=== PATIENT | female | born 1980 | race Caucasian/White ===

== ENCOUNTER 2017-08-10 06:37 | Day surgery (SDC) | payer OTHER ==
[2017-08-10] MEDS ORDERED: CEFAZOLIN 1 GM INJ (07:00)
[2017-08-10] MEDS ORDERED: EPHEDrine SULFATE 50 MG/5 ML SYG (07:00)
[2017-08-10 08:06] LABS: ADD MAN DIFF? NO
[2017-08-10 08:11] LABS: WHITE BLOOD COUNT 6.1 10^3/ul (4.8-10.8)
[2017-08-10 08:11] LABS: BASOPHILS % 0.2 % (0.0-2.0); EOSINOPHILS # 0.1 10^3/ul (0.0-0.5); EOSINOPHILS % 1.6 % (0.0-7.0); HEMATOCRIT 36.6 % (37.0-47.0); HEMOGLOBIN 12.4 g/dl (12.0-16.0); LYMPHOCYTES # 1.8 10^3/ul (0.8-2.9); LYMPHOCYTES % 29.9 % (15.0-51.0); MEAN CORPUSCULAR HEMOGLOBIN 28.2 pg (29.0-33.0); MEAN CORPUSCULAR HGB CONC 33.9 g/dl (32.0-37.0); MEAN CORPUSCULAR VOLUME 83.2 fl (82.0-101.0); MEAN PLATELET VOLUME 10.6 fl (7.4-10.4); MONOCYTE # 0.3 10^3/ul (0.3-0.9); MONOCYTES % 4.2 % (0.0-11.0); NEUTROPHIL # 3.9 10^3/ul (1.6-7.5); NEUTROPHILS % 63.8 % (39.0-77.0); PLATELET COUNT 166 10^3/UL (140-415); RED CELL DISTRIBUTION WIDTH 12.3 % (11.5-14.5)
[2017-08-10 08:36] LABS: INR 0.93; PROTIME 12.6 Sec (11.9-14.9)
[2017-08-10 08:37] LABS: PARTIAL THROMBOPLASTIN TIME 26.4 Sec (25.0-35.0)
[2017-08-10 08:40] LABS: ANION GAP 14 (8-16); CARBON DIOXIDE 24 mmol/L (21-31); CHLORIDE 107 mmol/L (97-110); GLUCOSE 85 mg/dl (70-220)
[2017-08-10 08:41] LABS: BLOOD UREA NITROGEN 14 mg/dl (7-20); CALCIUM 8.5 mg/dl (8.4-10.2); CREATININE 0.61 mg/dl (0.44-1.00); POTASSIUM 4.2 mmol/L (3.5-5.1); SODIUM 141 mmol/L (135-144)
[2017-08-10] MEDS ORDERED: FENTAnyl 50 MCG/ML VIAL (08:52)
[2017-08-10] MEDS ORDERED: MIDAZOLAM 1 MG/ML 2 ML INJ (08:52)
[2017-08-10] MEDS ORDERED: PROPOFOL 20 ML (08:52)
[2017-08-10] MEDS ORDERED: ROPIVACAINE 0.5 % 30 ML VIAL (08:52)
[2017-08-10] MEDS ORDERED: ROCURONIUM 50 MG INJ ×2 (08:52→09:56)
[2017-08-10] MEDS ORDERED: KETOROLAC 30 MG INJ (09:56)
[2017-08-10] MEDS ORDERED: ONDANSETRON 4 MG INJ (09:56)
[2017-08-10] MEDS ORDERED: METOCLOPRAMIDE 10 MG INJ (09:56)
[2017-08-10] MEDS ORDERED: DEXAMETHASONE 4 MG/ML 1 ML INJ (09:56)
[2017-08-10] MEDS: SODIUM CHLORIDE 0.9% 1L IRRIG IRR (10:08)
[2017-08-10] MEDS ORDERED: SUGAMMADEX SODIUM 200 MG/2 ML VIAL IV (10:21)
[2017-08-10] MEDS ORDERED: DIPHENHYDRAMINE 50 MG INJ IV (10:30)
[2017-08-10] MEDS ORDERED: METOCLOPRAMIDE 10 MG INJ IV (10:30)
[2017-08-10] MEDS ORDERED: HYDROmorphONE (0.2 MG/ML) 10ML SYG IV (10:30)
[2017-08-10] MEDS ORDERED: EPHEDrine SULFATE 50 MG/5 ML SYG IV (10:30)
[2017-08-10] MEDS ORDERED: FENTAnyl 50 MCG/ML VIAL IV ×3 (10:30)
[2017-08-10] MEDS: HYDROmorphONE (0.2 MG/ML) 10ML SYG IV ×4 (10:44→11:05)
[2017-08-10] MEDS: MEPERIDINE 25 MG INJ IV (10:45)
[2017-08-10] MEDS: ONDANSETRON 4 MG INJ IV (10:45)
[2017-08-10] MEDS ORDERED: ONDANSETRON 4 MG INJ IV (11:00)
[2017-08-10] MEDS ORDERED: ACETAMINOPHEN 1000MG/100ML IV 100 ML IVPB (11:00)
[2017-08-10] MEDS ORDERED: HYDROCODONE/APAP (5/325) TAB PO (11:00)
[2017-08-10] MEDS: D5W-0.45 NACL + KCL 20 MEQ 1,000 ML IV ×2 (19:30→19:58)
[2017-08-10] MEDS: SOD CHLORIDE 0.9% 1,000 ML IV (19:45)
[2017-08-10] MEDS: CEFAZOLIN 2 GM/50 ML (PMX) 50 ML IVPB (19:45)
[2017-08-10] MEDS: morphine 2 MG INJ IV (21:36)
[2017-08-11] MEDS: morphine 2 MG INJ IV (02:32)
[2017-08-11] MEDS: D5W-0.45 NACL + KCL 20 MEQ 1,000 ML IV ×3 (02:55→10:55)
[2017-08-11 06:30] LABS: ADD MAN DIFF? NO
[2017-08-11 06:43] LABS: BASOPHILS % 0.1 % (0.0-2.0); EOSINOPHILS % 0.2 % (0.0-7.0); HEMATOCRIT 34.8 % (37.0-47.0); HEMOGLOBIN 11.4 g/dl (12.0-16.0); LYMPHOCYTES # 1.7 10^3/ul (0.8-2.9); LYMPHOCYTES % 18.8 % (15.0-51.0); MEAN CORPUSCULAR HEMOGLOBIN 27.9 pg (29.0-33.0); MEAN CORPUSCULAR HGB CONC 32.8 g/dl (32.0-37.0); MEAN CORPUSCULAR VOLUME 85.1 fl (82.0-101.0); MEAN PLATELET VOLUME 10.8 fl (7.4-10.4); MONOCYTE # 0.5 10^3/ul (0.3-0.9); MONOCYTES % 5.2 % (0.0-11.0); NEUTROPHIL # 6.7 10^3/ul (1.6-7.5); NEUTROPHILS % 75.4 % (39.0-77.0); PLATELET COUNT 186 10^3/UL (140-415); RED BLOOD COUNT 4.09 10^6/ul (4.20-5.40); RED CELL DISTRIBUTION WIDTH 12.4 % (11.5-14.5)
[2017-08-11 06:43] LABS: WHITE BLOOD COUNT 8.9 10^3/ul (4.8-10.8)
[2017-08-11 07:05] LABS: ANION GAP 14 (8-16); BLOOD UREA NITROGEN 8 mg/dl (7-20); CALCIUM 8.2 mg/dl (8.4-10.2); CARBON DIOXIDE 23 mmol/L (21-31); CHLORIDE 105 mmol/L (97-110); CREATININE 0.64 mg/dl (0.44-1.00); GLUCOSE 101 mg/dl (70-220); POTASSIUM 4.3 mmol/L (3.5-5.1); SODIUM 138 mmol/L (135-144)
[2017-08-11] MEDS: HYDROCODONE/APAP (5/325) TAB NGT (11:59)
== END 2017-08-11 18:15 | disposition home or self-care (01) ==
LOC: SDS 06:37 → REC 19:50 → SDS 10:56 → REC 10:56 → SDS 10:56 → MS2 19:50 → SDS 08-11 18:15
DX: K80.10 Calculus of gallbladder with chronic cholecystitis without obstruction (principal); J45.909 Unspecified asthma, uncomplicated; E66.9 Obesity, unspecified; Z68.38 Body mass index [BMI] 38.0-38.9, adult
CPT/HCPCS: 47562; 80048; 85025; 85610; 85730; 88304